=== PATIENT | female | born 1955 | race Asian ===

== ENCOUNTER 2020-03-03 08:06 | Emergency (ER) | payer MEDICAID ==
[~2020-03-03] VITALS: Ht 160 cm; Wt 52.2 kg
[2020-03-03 08:13] VITALS: BP 149/89
[2020-03-03] MEDS ORDERED: ACETAMINOPHEN EXTRA STRENGTH 500 MG TAB PO ONE (08:20)
--- NOTE | 2020-03-03 08:24 | NUR ---
dr welsh at bedside evaluating pt.
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
--- NOTE | 2020-03-03 08:26 | NUR ---
gave pt food , sitting on bed with stable v/s.
--- NOTE | 2020-03-03 08:27 | NUR ---
pt to ct scan via [facility].
--- NOTE | 2020-03-03 08:39 | NUR ---
pt back from ct scan.
--- NOTE | 2020-03-03 08:43 | NUR ---
pt comfortable in bed ,in sitting position snacking.
[2020-03-03 10:04] VITALS: BP 107/65
--- NOTE | 2020-03-03 10:05 | NUR ---
Patient discharged with v/s stable. Written and verbal after care instructions given and explained regarding head injury. Patient alert, oriented and verbalized understanding of instructions. Ambulatory with steady gait. All questions addressed prior to discharge. ID band removed. Patient advised to follow up with PMD. Rx of naprosyn given. Patient educated on indication of medication including possible reaction and side effects. Opportunity to ask questions provided and answered.
== END 2020-03-03 10:04 | disposition home or self-care (01) ==
LOC: MED 08:06
DX: S09.8XXA Other specified injuries of head, initial encounter (principal); W19.XXXA Unspecified fall, initial encounter; Y93.89 Activity, other specified; Y92.521 Bus station as the place of occurrence of the external cause; Y99.8 Other external cause status
CPT/HCPCS: 70450; 99284